=== PATIENT | male | born 1955 | race Two or more races ===

== ENCOUNTER 2017-12-04 05:20 | Day surgery (SDC) | payer OTHER ==
[2017-12-03 09:40] LABS: HEMATOCRIT 36.4 % (42.0-54.0); HEMOGLOBIN 12.8 g/dL (13.5-17.5); MCH 31.5 pg (26.0-34.0); MCHC 35.2 g/dL (31.0-37.0); MCV 89.7 fL (80.0-100.0); MEAN PLATELET VOLUME 9.1 fL (7.4-10.4); RBC 4.06 10x6/uL (4.20-6.10); RDW 12.8 % (11.5-14.5); WBC 5.8 10x3/uL (4.8-10.8)
[2017-12-03 09:49] LABS: CALC OSMOLALITY 276 mosm/kg (275-300); CALCIUM 8.4 mg/dL (8.5-10.1); CHLORIDE - SERUM 102 mmol/L (98-107); CREATININE - SERUM 0.9 mg/dL (0.6-1.3); GLUCOSE 106 mg/dL (74-106); SODIUM 138 mmol/L (136-145); UREA NITROGEN 14 mg/dL (7-18); eGFR NON AFRICAN AMERICAN > 90 mL/min (90-120)
[~2017-12-04] VITALS: Ht 170.2 cm; Wt 85.7 kg
--- NOTE | ~2017-12-04 | OP ---
PATIENT NAME: BLANCO CHAUDHARY MEDICAL RECORD: [id number] :53 LOCATION:[facility] ADMISSION DATE: SURGEON: BRIDGER HOFF MD DATE OF OPERATION: 12/04/2017 PREOPERATIVE DIAGNOSIS: Left ring trigger finger. POSTOPERATIVE DIAGNOSIS: Left ring trigger finger. PROCEDURE: Trigger finger release of left ring finger. SURGEON: Bridger Hoff MD ANESTHESIA: General. INTRAOPERATIVE COMPLICATIONS: None. SUMMARY OF PATHOLOGIC FINDINGS: The patient had significant bulbar changes of the flexor tendon of the ring finger consistent with diagnosis of trigger finger. OPERATIVE SUMMARY IN DETAIL: After obtaining the appropriate preoperative orthopedic surgery consent as well as anesthetic consultation, evaluation and clearance, the patient was brought to the operating room and placed on the operating table in supine position. After general laryngeal mask airway was administered, tourniquet was placed about the proximal aspect of the left upper extremity. Left upper extremity was then prepped and draped in routine sterile fashion. The arm was elevated and exsanguinated, tourniquet was inflated to 250 mmHg. Very minimal base incision was made just proximal to the metacarpal head. This incision was then taken down and under direct visualization the A1 juvenal was identified and incised in its entirety. Mild attritional changes were seen of the flexor tendon; however, no full thickness tearing was noted. The wound was then irrigated and closed with 4-0 Prolene in routine interrupted fashion. The area was locally infiltrated with 0.25% Marcaine plain. Sterile dressings were applied. Tourniquet was deflated. The patient was awakened and taken to recovery room in stable condition. All final needle and sponge counts were correct. TRANSINT:[id number] Voice Confirmation ID: [id number] DOCUMENT ID: [id number] BRIDGER HOFF MD at 1418 CC: [id number] DICTATION DATE: 12/11/17 1243 [facility] OPERATOR: 12/11/17 1251 [facility] 12/04/[address] [id number]
[~2017-12-04 05:20] MED LIST: AVAPRO300 MG PO; DICLOFENAC SODI50 MG PO; GLUCOPHAGE1000 MG PO; NEURONTIN600 MG PO; NORVASC5 MG PO; OMEPRAZOLE40 MG PO; PRAVACHOL80 MG PO; ULTRAM50 MG PO
[2017-12-04 05:50] VITALS: BP 153/79; Ht 170.2 cm; Wt 85.7 kg
[2017-12-04] MEDS ORDERED: HYDROCODONE-APA1 TAB PO (08:24)
== END 2017-12-04 10:00 | disposition home or self-care (01) ==
LOC: D.OPS 05:20 → D.PAN 07:30 → D.OPS 07:30
PROVIDERS: Anesthesiology
DX: M65.342 Trigger finger, left ring finger (principal); Z01.812 Encounter for preprocedural laboratory examination